=== PATIENT | male | born 1990 | race Caucasian/White ===

== ENCOUNTER 2022-01-24 14:29 | Emergency (ER) | payer BC ==
[2022-01-24 15:15] LABS: HEMOGLOBIN 18.5 gm/dl (14.0-17.5); RED BLOOD COUNT 5.58 M/UL (4.20-5.50); WHITE BLOOD COUNT 12.2 K/UL (4.5-11.0)
[2022-01-24 15:36] LABS: BUN/CREATININE RATIO 18 (0-10)
[2022-01-24] MEDS ORDERED: TORADOL 10 MG T10 MG PO (16:48)
[2022-01-24] MEDS ORDERED: ZOFRAN 4 MG TAB4 MG PO (16:48)
[2022-01-24] MEDS ORDERED: ENDOCET 5-3251 EACH PO (17:01)
== END 2022-01-24 17:20 | disposition home or self-care (01) ==
LOC: ER1 14:29
PROVIDERS: Physician Assistant
DX: N13.2 Hydronephrosis with renal and ureteral calculous obstruction (principal); I10 Essential (primary) hypertension; Z87.442 Personal history of urinary calculi
CPT/HCPCS: 80053; 81001; 85025; 96374; 96375; 99284; J1885; J2270; J2405